=== PATIENT | male | born 2000 | race Caucasian/White ===

== ENCOUNTER 2020-01-09 20:39 | Emergency (ER) | payer MEDICAID ==
[2020-01-09] MEDS ORDERED: CLINDAMYCIN 600 MG/D5W RTU 600 MG/50 ML RTUPB IV ONE (21:16)
--- NOTE | 2020-01-09 21:18 | ER Document Report ---
ED Medical Screen (RME) - General Chief Complaint: Insect Bite Stated Complaint: INSECT BITE TO RIGHT ARM/SWELLING Time Seen by Provider: 01/09/20 21:10 Mode of Arrival: Ambulatory Information source: Patient Notes: HPI; 19-year-old male presents to the emergency room complaining increasing swelling, erythema, and drainage to his right forearm for the past 3 days. He denies any trauma or injury. States that he has been topical antibiotic ointment tried to drain it yesterday without relief. Unsure if he may have been bitten by something. States his tetanus is up-to-date. PE: Alert and oriented x3. Mild distress noted. Lungs: Clear to auscultation without rales, rhonchi, wheezes. Heart: Regular rate rhythm without murmurs, rubs, gallops. Right forearm with a 7 x 4 cm area of erythema it is warm and tender to palpation. There is some active purulent drainage noted in the midportion of the right forearm. Positive right radial pulse. I have greeted and performed a rapid initial assessment of this patient. A comprehensive ED assessment and evaluation of the patient, analysis of test results and completion of the medical decision making process will be conducted by additional ED providers. I have specifically instructed the patient or family members with the patient to immediately return to any nursing staff should anything change in the patient's condition or with their chief complaint. TRAVEL OUTSIDE OF THE [place] IN LAST 30 DAYS: No Physical Exam - Vital signs Vitals: Temp Pulse Resp BP Pulse Ox 98.4 F 98 16 120/61 100 01/09/20 20:54 01/09/20 20:54 01/09/20 20:54 01/09/20 20:54 01/09/20 20:54 Course - Vital Signs Vital signs: Temp Pulse Resp BP Pulse Ox 98.4 F 98 16 120/61 100 01/09/20 20:54 01/09/20 20:54 01/09/20 20:54 01/09/20 20:54 01/09/20 20:54
[2020-01-09 23:33] LABS: ABSOLUTE EOSINOPHILS # (AUTO) 0.2 10^3/uL (0.0-0.6); ABSOLUTE LYMPHOCYTES (AUTO) 1.9 10^3/uL (0.5-4.7); ABSOLUTE MONOCYTES (AUTO) 0.7 10^3/uL (0.1-1.4); ABSOLUTE NEUT (AUTO) 6.4 10^3/uL (1.7-8.2); BASOPHILS % (AUTO) 0.3 % (0-2); HEMOGLOBIN 13.8 g/dL (13.5-17.0); LYMPHOCYTES % (AUTO) 20.3 % (13-45); MEAN CORPUSCULAR HEMOGLOBIN 31.3 pg (27.0-33.4); MEAN CORPUSCULAR HGB CONC 36.2 g/dL (32.0-36.0); MEAN CORPUSCULAR VOLUME 86 fl (80-97); MONOCYTES % (AUTO) 7.8 % (3-13); PLATELET COUNT 151 10^3/uL (150-450); RED BLOOD COUNT 4.41 10^6/uL (4.35-5.55); SEGMENTED NEUTROPHILS % (AUTO) 69.6 % (42-78); TOTAL CELLS COUNTED % (AUTO) 100 %; WHITE BLOOD COUNT 9.2 10^3/uL (4.0-10.5)
--- NOTE | 2020-01-09 23:39 | ER Document Report ---
ED General - General Chief Complaint: Skin Problem Stated Complaint: INSECT BITE TO RIGHT ARM/SWELLING Time Seen by Provider: 01/09/20 21:10 Primary Care Provider: OSCAR SIMON MD [Primary Care Provider] - Follow up as needed Mode of Arrival: Ambulatory TRAVEL OUTSIDE OF THE [place] IN LAST 30 DAYS: No - HPI Notes: Patient is a 19-year-old male who presents the emergency department for evaluation of increasing erythema on his right right he states 3 or 4 days ago he noticed 2 pustules on his right arm. He states he squeezed them, got some green drainage. He states it seemed to get better, that it got worse. He has had increased redness and swelling. No fevers or chills. No nausea or vomiting. He is eating and drinking normally. No numbness or tingling, he can move his right upper extremity without difficulty. He has no history of MRSA to his knowledge. - Related Data Allergies/Adverse Reactions: No Known Allergies Allergy (Unverified 01/09/20 23:39) Home Medications: None Past Medical History - General Information source: Patient - Social History Smoking Status: Never Smoker Cigarette use (# per day): No - Patient does vape Frequency of alcohol use: None Drug Abuse: Marijuana Family History: Reviewed & Not Pertinent, Malignancy - Breast cancer in gra ndmother Patient has homicidal ideation: No - Medical History Medical History: Negative Surgical Hx: Negative Review of Systems - Review of Systems Constitutional: No symptoms reported EENT: No symptoms reported Cardiovascular: No symptoms reported Respiratory: No symptoms reported Gastrointestinal: No symptoms reported Genitourinary: No symptoms reported Musculoskeletal: See HPI Skin: See HPI Neurological/Psychological: No symptoms reported Physical Exam - Vital signs Vitals: Temp Pulse Resp BP Pulse Ox 98.4 F 98 16 120/61 100 01/09/20 20:54 01/09/20 20:54 01/09/20 20:54 01/09/20 20:54 01/09/20 20:54 - Notes Notes: Vital signs reviewed, please refer to chart. Head is normocephalic, atraumatic. Pupils equal round, reactive to light. Neck is supple without meningismus. Heart is regular rate and rhythm. Lungs are clear to auscultation bilaterally. Abdomen is soft, nontender, normoactive bowel sounds throughout. Extremities without cyanosis, clubbing. Posterior calves are nontender. Peripheral pulses are equal. Examination of the right upper extremity yields a moderate amount of edema with associated induration and erythema to the dorsum of the right forearm. There is a 5 mm ulceration noted to the mid forearm, consistent with recent pustule, with a small amount of purulent drainage. No fluctuance noted. There is associated calor. Neurovascularly intact distally to the right upper extremity. Patient is awake and alert, cooperative with examiner. Course - Re-evaluation Re-evalutation: 01/09/20 23:39 Patient is a 19-year-old male who presents to the emergency department for evaluation. He is seems to have a resultant cellulitis following eruption of pustules on his right forearm. He is afebrile here. He is not tachycardic. He has no major medical issues. Blood work and IV antibiotics as ordered through triage. Suspect the patient will be treated with IV antibiotics here, oral antibiotics as an outpatient. I did obtain wound cultures. The wound was thoroughly cleansed and dressed, the patient was told to keep this area clean and dry, wash with soap and water twice a day, follow-up with his primary care provider this week. 01/10/20 00:39 Patient does not have a significant leukocytosis. His vital signs are stable. He is received IV clindamycin. I will send him home with a prescription for clindamycin, wound care instructions, and close follow-up. He is to return to the ED with worsening. - Vital Signs Vital signs: Temp Pulse Resp BP Pulse Ox 98.4 F 98 16 120/61 100 01/09/20 20:54 01/09/20 20:54 01/09/20 20:54 01/09/20 20:54 01/09/20 20:54 - Laboratory Result Diagrams: 01/09/20 23:14 01/09/20 23:14 Laboratory results interpreted by me: 01/09/20 23:14 [facility] 36.2 H Discharge - Discharge Clinical Impression: Right forearm cellulitis Condition: Stable Disposition: HOME, SELF-CARE Instructions: Cellulitis ([facility]) Additional Instructions: Please take all of the antibiotics as prescribed until they are gone. Keep area clean with soap and water, bandage with antibiotic ointment. If you develop fevers, vomiting, increased swelling, increased redness, increased drainage, or any other new or concerning symptoms, please return immediately to the emergency department for evaluation. Prescriptions: Clindamycin HCl 300 mg PO TID #30 capsule Referrals: OSCAR SIMON MD [Primary Care Provider] - Follow up as needed
[2020-01-09 23:51] LABS: ALKALINE PHOSPHATASE 65 U/L (38-126); ANION GAP 9 (5-19); ASPARTATE AMINO TRANSFERASE 22 U/L (17-59); BILIRUBIN,DIRECT 0.3 mg/dL (0.0-0.4); BILIRUBIN,TOTAL 0.4 mg/dL (0.2-1.3); BLOOD UREA NITROGEN 9 mg/dL (7-20); CALCIUM 9.3 mg/dL (8.4-10.2); CARBON DIOXIDE 25 mmol/L (22-30); CHLORIDE 104 mmol/L (98-107); GLUCOSE 97 mg/dL (75-110); POTASSIUM 3.8 mmol/L (3.6-5.0); TOTAL PROTEIN 6.6 g/dL (6.3-8.2)
[2020-01-10 01:12] VITALS: BP 117/78
== END 2020-01-10 01:11 | disposition home or self-care (01) ==
LOC: ER 20:39
DX: L03.113 Cellulitis of right upper limb (principal); Z72.0 Tobacco use
CPT/HCPCS: 99284; 96365; 36415; 87040; 87070; 87205; 83605; 85025; 87075; 87077; 80053; 87186; S0077